=== PATIENT | male | born 1975 | race Caucasian/White ===

== ENCOUNTER 2017-05-27 07:52 | Day surgery (SDC) | payer BC ==
[2017-05-27 08:23] VITALS: BMI 46.5
[2017-05-27] MEDS ORDERED: PROPOFOL 20 ML ONE ×2 (08:45)
[2017-05-27 11:37] VITALS: BP 129/66; PULSE 63; TEMP 97.8
--- NOTE | 2017-05-28 19:00 | PATH ---
Surgical Pathology Report Patient Name: GIUSEPPE GREGG [facility]. Rec. #: [id number] /Age/Gender: 1975 (Age: 41) / M Account: [id number] Location: U-ENDOSCOPY Taken: 05/27/2017 Received: 05/27/2017 Reported: 05/28/2017 Physicians: Jf Wong M.D. Specimen(s) Received A: RECTAL POLYP B: BX TERMINAL ILEUM C: BX CECUM Clinical History Rectal polyps, hemorrhoids Final Diagnosis A. RECTUM, POLYP, BIOPSY: HYPERPLASTIC POLYP. B. TERMINAL ILEUM, BIOPSY: SMALL BOWEL/ILEAL MUCOSA WITHOUT SIGNIFICANT PATHOLOGIC FINDINGS. C. CECUM, BIOPSY: COLONIC MUCOSA WITH SUPERFICIAL HYPERPLASTIC FEATURES. NO EVIDENCE OF MICROSCOPIC COLITIS. Electronically Signed Lanny Dalton M.D. Gross Description A. Received in formalin, labeled "biopsy rectal polyp" is a weeks, irregular portion of soft tissue measuring 0.4 cm. in greatest dimension. The specimen is submitted in toto in one cassette. B. Received in formalin, labeled "biopsy terminal ileum" are 2 weeks, irregular portions of soft tissue measuring 0.3 and 0.4 cm. in greatest dimension. The specimens are submitted in toto in one cassette. C. Received in formalin, labeled "biopsy cecum" are 2 weeks, irregular portions of soft tissue measuring 0.1 and 0.2 cm. in greatest dimension. The specimens are submitted in toto in one cassette. 05/27/201705/27/2017
== END 2017-05-27 10:40 | disposition home or self-care (01) ==
LOC: JASU-ENDO 07:52
PROVIDERS: ATTEND Internal Medicine Gastroenterology
PROC: 0DBP8ZX Excision of Rectum, Via Natural or Artificial Opening Endoscopic, Diagnostic (ICD-10-PCS; principal; 2017-05-27 09:00)
DX: Z12.11 Encounter for screening for malignant neoplasm of colon (principal); R19.7 Diarrhea, unspecified; Z86.010 Personal history of colon polyps; Z83.71 Family history of colonic polyps; K62.1 Rectal polyp; K64.8 Other hemorrhoids
CPT/HCPCS: 87045; 87046; 87177; 87209; 88305-TC

== ENCOUNTER 2019-01-15 18:51 | Inpatient (IN) | payer BC ==
[2019-01-15 18:58] VITALS: BMI 48.7
--- NOTE | 2019-01-15 19:02 | PDOC ---
Rapid Medical Evaluation Chief Complaint: Difficulty with Vision Time Seen by Provider: 01/15/19 19:01 Medical Evaluation: Allergies Allergy/AdvReac Type Severity Reaction Status Date / Time diazepam [From Valium] AdvReac Verified 01/15/19 18:58 Vital Signs Temp Pulse Resp BP Pulse Ox 98.2 F 67 18 131/69 98 01/15/19 18:55 01/15/19 18:55 01/15/19 18:55 01/15/19 18:55 01/15/19 18:55 01/15/19 19:01 I have performed a brief in-person evaluation of this patient. The patient presents with a chief complaint of: resolved vision loss in left eye left field of vision 1 hour ago Pertinent physical exam findings: PERRLA. EOMI. No focal deficits I have ordered the following: head CT, labs The patient will proceed to the ED for further evaluation. 01/15/19 19:01 Discharge Disposition - Diagnosis Vision loss of left eye - Referrals - Patient Instructions - Post Discharge Activity
--- NOTE | 2019-01-15 20:27 | PDOC ---
History of Present Illness - General Chief Complaint: Difficulty with Vision Stated Complaint: VISION PROBLEM Time Seen by Provider: 01/15/19 19:01 History Source: Patient Exam Limitations: No Limitations - History of Present Illness Initial Comments: 01/15/19 20:22 43 yo M pmh HTN, muscular dystrophy, h/o TIA 2004 p/w acute painless monocular vision loss of the left eye, left field. Sx started 1 hour before presentation over 10 minutes and resolved over 10 minutes. Right eye unaffected. Endorses mild headache after resolution of visual symptoms - has since resolved. Denies trauma, diplopia, changes in hearing, lightheadedness/dizziness, numbness/ tingling/weakness, chest pain / palpitations / sob, n/v. Pt wears glasses, denies eye conditions. Allergy to vallium NIH Stroke Scale - Last Known Well Date/Time & Onset Date Last Known Well: 01/15/19 - Initial Evaluation Level of consciousness: Alert Ask patient the month and their age: Answers both correctly Ask patient to open & close eyes; make fist and let go: Obeys both correctly Best gaze (horizontal eye movement): Normal Visual field testing: No visual field loss Facial paresis (Show teeth/raise eyebrows/close eyes tight): Normal symmetrical movement Motor Function: Left Arm: Normal Motor Function: Right Arm: Normal (extends arm 90 (or 45) degrees for 10 seconds without drift Motor Function: Left Leg: Normal (extends leg 30 degrees for 5 seconds without drift) Motor Function: Right Leg: Normal (extends leg 30 degrees for 5 seconds without drift) Limb Ataxia: No ataxia Sensory(Use pinprick test arms,legs,trunk,face/side to side): Normal Best language (Describe picture, name items, read sentences): No Aphasia Dysarthria (read several words): Normal articulation Extinction and Inattention: No abnormality - Total Score NIH Stroke Scale Score: 0 Past History - Past Medical History Allergies/Adverse Reactions: Allergies Allergy/AdvReac Type Severity Reaction Status Date / Time diazepam [From Valium] AdvReac Verified 01/15/19 18:58 Home Medications: Ambulatory Orders Aspirin [Ecotrin] 81 mg PO DAILY 11/19/11 Enalapril Maleate [Vasotec -] 20 mg PO DAILY 11/19/11 Hydrochlorothiazide 50 mg PO DAILY 11/19/11 Arginine [l-Arginine] 1 tab PO DAILY 05/27/17 Ascorbate Calcium [Vitamin C] 500 mg PO DAILY 05/27/17 Cyanocobalamin (Vitamin B-12) [Vitamin B12] 2,500 mcg PO DAILY 05/27/17 Levocarnitine Tartrate [l-Carnitine] 1 tab PO DAILY 05/27/17 Multivitamin with Minerals [Icaps Plus] 1 each PO DAILY 05/27/17 Ornithine [l-Ornithine HCl] 100 gm MC DAILY 05/27/17 COPD: No GI Disorders: Yes (RECTAL POLYP, HIAQTAL HERNIA,IBS) HTN: Yes - Surgical History Orthopedic Surgery: Yes (B/L ACHILLES TENDON LENGHTENING , MUSCLE TRANSFER AGE 17) - Suicide/Smoking/Psychosocial Hx Smoking Status: No Smoking History: Never smoked Number of Cigarettes Smoked Daily: 0 Information on smoking cessation initiated: No Hx Alcohol Use: No Drug/Substance Use Hx: No Substance Use Type: None Review of Systems - Review of Systems Able to Perform ROS?: Yes Is the patient limited Japanese proficient: No Constitutional: No: Symptoms Reported, See HPI, Chills, Diaphoresis, Fever, Loss of Appetite, Malaise, Night Sweats, Weakness, Weight Stable, Unintentional Wgt. Loss, Unexplained wgt Loss, Other HEENTM: No: Eye Pain, Double Vision, Ear Pain, Hearing Loss Respiratory: No: Shortness of Breath Cardiac (ROS): No: Chest Pain, Lightheadedness, Palpitations, Syncope ABD/GI: No: Nausea, Vomiting Neurological: Yes: Headache. No: Numbness, Tingling, Weakness, Dizziness *Physical Exam - Vital Signs Last Vital Signs Temp Pulse Resp BP Pulse Ox 98.2 F 67 18 131/69 98 01/15/19 18:55 01/15/19 18:55 01/15/19 18:55 01/15/19 18:55 01/15/19 18:55 - Physical Exam Comments: 01/15/19 20:39 GEN: resting comfortably in bed, NAD HEENT: NC/AT, EOMI, PERRLA, CN II-XII INTACT. No facial asymmetry. Visual mayorga intact. No nystagmus. 20/20 visual acute with glasses on. NEURO: NIHSS 0. 5/5 b/l shoulder, bicep, tricep, hand, drug inspector strength. 5/5 b /l LE strength. Sensation intact in face and all extremities. No ataxia. CV: S1/S2, RRR, no m/r/g LUNG: CTAB, no wheezes/rales GI: soft, nt, nd, +BS ED Treatment Course - LABORATORY CBC & Chemistry Diagram: 01/15/19 20:45 01/15/19 20:45 Medical Decision Making - Medical Decision Making 01/15/19 20:37 43 yo M h/o TIA and HTN presented with acute painless monocular vision loss affecting the left field of left eye. Symptoms resolved. ROS negative except mild headache that has resolved. DDx most likely TIA, amaurosis fugax; r/o CVA, carotid dissection, considering/ unlikely temporal arteritis, CRVO/CRAO. Acute left sided vision loss of loss eye - ekg - CT head - CTA head and neck - labs - monitors, IV 01/15/19 23:39 CT Head report - no acute hemorrhage Dispo: admit to telemetry *DC/Admit/Observation/Transfer Diagnosis at time of Disposition: Vision loss of left eye, TIA (transient ischemic attack) - Discharge Dispostion Condition at time of disposition: Stable Decision to Admit order: Yes - Referrals - Patient Instructions - Post Discharge Activity
--- NOTE | 2019-01-15 20:31 | PDOC ---
Documentation entered by Rome Rod SCRIBE, acting as scribe for Kalin Escobar MD. Kalin Escobar MD: This documentation has been prepared by the Marcel hernandez Daniel, SCRIBE, under my direction and personally reviewed by me in its entirety. I confirm that the documentation accurately reflects all work, treatment, procedures, and medical decision making performed by me. Attending Attestation - Resident Resident Name: Bharath Delvalle - ED Attending Attestation I have performed the following: I have examined & evaluated the patient, The case was reviewed & discussed with the resident, I agree w/resident's findings & plan, Exceptions are as noted - HPI HPI: 01/15/19 20:21 The patient is a 43 year old male with a past medical history of TIA, HTN, and muscular dystrophy here today for evaluation of loss vision. The patient reports that he had a sudden onset of painless loss of vision of the left visual field in his left eye. He reports that a similar episode happened in his right eye when he had his TIA. He also notes a slight headache which has since resolved. Patient denies headache, lightheadedness. Denies fever, chills. Denies chest pain, shortness of breath. Denies nausea, vomiting, diarrhea, abdominal pain. Allergies: diazepam - Physicial Exam PE: 01/15/19 20:45 Negative RAPD No detectable visual field defect - Medical Decision Making 01/15/19 20:27 TIA in past a/w visual disturbance and limb paresthesias Here with painless, resolved visual field defect, patient describes a monocular hemianopia of the L eye, denies complete vision loss amaurosis? preamble to CRAO, CRVO, TIA, CVA, less likely mass f/u ct b eval carotids f/u labs including coags
[2019-01-15 21:00] LABS: BASO % 0.5 % (0-2.0); EOS % 2.1 % (0-4.5); HEMATOCRIT 43.1 % (35.4-49); HEMOGLOBIN 14.5 GM/dL (11.7-16.9); LYMPH % 29.9 % (8-40); MCH 30.7 pg (25.7-33.7); MCHC 33.7 g/dl (32.0-35.9); MEAN PLT VOLUME 7.6 fl (7.5-11.1); MONO % 7.6 % (3.8-10.2); NEUT % 59.9 % (42.8-82.8); PLATELET COUNT 245 K/MM3 (134-434); RBC 4.74 M/mm3 (4.00-5.60); WHITE BLOOD COUNT 11.1 K/mm3 (4.0-10.0)
[2019-01-15 21:15] LABS: INR 1.03 (0.83-1.09); PROTHROMBIN TIME (PATIENT) 12.1 SEC (9.7-13.0)
[2019-01-15 21:25] LABS: ALBUMIN 3.7 g/dl (3.4-5.0); BILIRUBIN,TOTAL 0.5 mg/dL (0.2-1); BLOOD UREA NITROGEN 16.8 mg/dL (7-18); CALCIUM 8.8 mg/dL (8.5-10.1); CREATININE 0.7 mg/dL (0.55-1.3); POTASSIUM 3.9 mmol/L (3.5-5.1); TOT PROT 6.8 g/dl (6.4-8.2)
[2019-01-15 21:45] LABS: CHOLESTEROL 172 mg/dL (50-200); HDL CHOLESTEROL 48 mg/dL (40-60); TRIGLYCERIDES 103 mg/dL (0-150)
[2019-01-15 21:54] LABS: PH,URINE 5.5 (5.0-8.0); URINE APPEARANCE CLEAR; URINE BILIRUBIN NEGATIVE (NEGATIVE); URINE COLOR YELLOW; URINE GLUCOSE (UA) NEGATIVE (NEGATIVE); URINE KETONE NEGATIVE (NEGATIVE); URINE LEUK ESTERASE NEGATIVE (NEGATIVE); URINE NITRITE NEGATIVE (NEGATIVE); URINE PROTEIN NEGATIVE (NEGATIVE); URINE UROBILINOGEN 0.2 mg/dL (0.2-1.0)
--- NOTE | 2019-01-16 01:04 | HP ---
<Marielle Ty - Last Filed: 01/16/19 07:18> CHIEF COMPLAINT: Vision Loss PCP: HISTORY OF PRESENT ILLNESS: 43 M PMH of TIA, Muscular dystrophy of his hands and feet, and HTN who presents with painless loss of his left peripheral vision. He was sitting at work earlier today when he noticed that he was not able to see his coffee mug in his left peripheral field of vision. The vision loss lasted for 10 minutes, which was followed by a tension type headache in his forehead that also resolved shortly after. He denies any discomfort with chewing, any new numbness, any photophobia, chest pain, shortness of breath, loss of consciousness, fever, chills, urinary or bowel incontinence. He notes a pre-existing numbness in his right thumb related to disc herniation from C5-C7. Of note in 2004 he had TIA which resulted in right hand numbness and right eye blurry vision, which self-resolved and was seen in [facility]. ER course was notable for: (1)In the ED had an EKG which showed NSR. (2)Head CT did not show any acute pathology, and CTA of the neck and brain did not show any stenosis. (3)He was given 80 mg atorvastatin. Recent Travel: No PAST MEDICAL HISTORY: Muscular dystrophy of the hands and feet. Hyperextended Thumbs. TIA in 2004 resulted in right hand numbness and right eye blurry vision. C5-C7 disc herniation that was treated with physical therapy last year. Rectal polyps and IBS PAST SURGICAL HISTORY: Achilles Tendon lengthening bilaterally @age 16. Social History: Smoking:None Alcohol:Rarely Drugs: None Family History: Father had colon cancer and HTN Allergies diazepam [From Valium] Adverse Reaction (Verified 01/15/19 18:58) HOME MEDICATIONS: Home Medications Medication Instructions Recorded Aspirin [Ecotrin] 81 mg PO DAILY 11/19/11 Enalapril Maleate [Vasotec -] 20 mg PO DAILY 11/19/11 Hydrochlorothiazide 50 mg PO DAILY 11/19/11 Arginine [l-Arginine] 1 tab PO DAILY 05/27/17 Ascorbate Calcium [Vitamin C] 500 mg PO DAILY 05/27/17 Cyanocobalamin (Vitamin B-12) 2,500 mcg PO DAILY 05/27/17 [Vitamin B12] Levocarnitine Tartrate 1 tab PO DAILY 05/27/17 [l-Carnitine] Multivitamin with Minerals [Icaps 1 each PO DAILY 05/27/17 Plus] Ornithine [l-Ornithine HCl] 100 gm MC DAILY 05/27/17 REVIEW OF SYSTEMS As above CONSTITUTIONAL: Absent: fever, chills, diaphoresis, generalized weakness, malaise, loss of appetite, weight change HEENT: visual changes that have resolved Absent: nasal congestion, throat pain, throat swelling, difficulty swallowing, mouth swelling, ear pain, eye pain, CARDIOVASCULAR: Absent: chest pain, syncope, palpitations, RESPIRATORY: Absent: cough, shortness of breath, GASTROINTESTINAL: Absent: abdominal pain, abdominal distension, nausea, vomiting, diarrhea GENITOURINARY: Absent: dysuria, frequency, urgency, hesitancy MUSCULOSKELETAL: Absent: myalgia, arthralgia, joint swelling, back pain, neck pain HEMATOLOGIC/IMMUNOLOGIC: Absent: easy bleeding, easy bruising NEUROLOGIC: Absent: headache, focal weakness or paresthesias, dizziness, unsteady gait, seizure, mental status changes, bladder or bowel incontinence PHYSICAL EXAMINATION Vital Signs - 24 hr 01/15/19 01/15/19 18:55 19:50 Temperature 98.2 F 97.9 F Pulse Rate 67 Pulse Rate [ 70 Right Radial] Respiratory 18 17 Rate Blood Pressure 131/69 Blood Pressure 117/72 [Left Arm] O2 Sat by Pulse 98 98 Oximetry (%) GENERAL: Awake, alert, and fully oriented, in no acute distress. Obese body habitus. HEAD: Normal with no signs of trauma. No scalp tenderness. EYES: Pupils equal, round and reactive to light, extraocular movements intact. NECK: Normal range of motion, supple without lymphadenopathy, JVD, or masses. LUNGS: Breath sounds equal, clear to auscultation bilaterally. No wheezes, and no crackles. HEART: Regular rate and rhythm, normal S1 and S2 without murmur, rub or gallop. ABDOMEN: Soft, nontender, not distended, normoactive bowel sounds. MUSCULOSKELETAL: Normal range of motion at all joints. No bony deformities or tenderness. UPPER EXTREMITIES: 2+ pulses, warm, well-perfused. No cyanosis. No clubbing. No peripheral edema. Muscular dystrophy in both hands, thumbs are hyperextended. LOWER EXTREMITIES: 2+ pulses, warm, well-perfused. No calf tenderness. No peripheral edema. NEUROLOGICAL: Cranial nerves II-XII intact. Normal speech. NIH Score: 0 SKIN: Warm, dry, normal turgor, no rashes or lesions noted, normal capillary refill. Laboratory Results - last 24 hr 01/15/19 01/15/19 01/15/19 20:45 20:45 20:45 WBC 11.1 H RBC 4.74 Hgb 14.5 Hct 43.1 MCV 91.0 MCH 30.7 MCHC 33.7 RDW 14.0 Plt Count 245 MPV 7.6 Absolute Neuts (auto) 6.6 Neutrophils % 59.9 Lymphocytes % 29.9 Monocytes % 7.6 Eosinophils % 2.1 Basophils % 0.5 Nucleated RBC % 0 ESR PT with INR 12.10 INR 1.03 Sodium 139 Potassium 3.9 Chloride 103 Carbon Dioxide 29 Anion Gap 7 L BUN 16.8 Creatinine 0.7 Est GFR (CKD-EPI)AfAm 134.91 Est GFR (CKD-EPI)NonAf 116.40 Random Glucose 86 Calcium 8.8 Total Bilirubin 0.5 AST 32 ALT 43 Alkaline Phosphatase 65 Creatine Kinase Creatine Kinase Index CK-MB (CK-2) Troponin I C-Reactive Protein Total Protein 6.8 Albumin 3.7 Triglycerides Cholesterol Total LDL Cholesterol HDL Cholesterol Urine Color Urine Appearance Urine pH Ur Specific [place] Urine Protein Urine Glucose (UA) Urine Ketones Urine Blood Urine Nitrite Urine Bilirubin Urine Urobilinogen Ur Leukocyte Esterase 01/15/19 01/15/19 01/15/19 20:45 20:45 21:20 WBC RBC Hgb Hct MCV MCH MCHC RDW Plt Count MPV Absolute Neuts (auto) Neutrophils % Lymphocytes % Monocytes % Eosinophils % Basophils % Nucleated RBC % ESR 15 H PT with INR INR Sodium Potassium Chloride Carbon Dioxide Anion Gap BUN Creatinine Est GFR (CKD-EPI)AfAm Est GFR (CKD-EPI)NonAf Random Glucose Calcium Total Bilirubin AST ALT Alkaline Phosphatase Creatine Kinase 344 H Creatine Kinase Index 0.6 CK-MB (CK-2) 2.3 Troponin I < 0.02 C-Reactive Protein 0.8 H Total Protein Albumin Triglycerides 103 Cholesterol 172 Total LDL Cholesterol 115 H HDL Cholesterol 48 Urine Color Yellow Urine Appearance Clear Urine pH 5.5 Ur Specific [place] 1.025 Urine Protein Negative Urine Glucose (UA) Negative Urine Ketones Negative Urine Blood Negative Urine Nitrite Negative Urine Bilirubin Negative Urine Urobilinogen 0.2 Ur Leukocyte Esterase Negative ASSESSMENT/PLAN: 43M with PMH of TIA, HTN, and Muscular Dystrophy of the hands and feet, who presents with temporary vision loss most likely due to TIA with an NIH Stroke Scale Score of 0. 1) TIA Atorvastatin 80 mg PO HS Aspirin 81 mg PO QDaily Enalapril 20 mg PO QDaily Hydrochlorothiazide 50 mg PO Qdaily Brain MRI Echo Neuro Checks Q4h Seizure precaution Lipid profile TSH level HbA1c level Physical Therapy Consult 2) Muscular Dystrophy Physical Therapy Consult 3)Elevated LDL Atorvastatin 80 mg PO HS DVT prophylaxis: Lovenox 40 mg SQ Qdaily F:no fluid E:monitor BMP N:Regular Diet Admitted to Telemetry Problem List - Problem (1) TIA (transient ischemic attack) Code(s): G45.9 - TRANSIENT CEREBRAL ISCHEMIC ATTACK, UNSPECIFIED (2) Vision loss of left eye Code(s): H54.62 - UNQUALIFIED VISUAL LOSS, LEFT EYE, NORMAL VISION RIGHT EYE Visit type - Emergency Visit Emergency Visit: Yes ED Registration Date: 01/16/19 Care time: The patient presented to the Emergency Department on the above date and was hospitalized for further evaluation of their emergent condition. - New Patient This patient is new to me today: Yes Date on this admission: 01/16/19 - Critical Care Critical Care patient: No ATTENDING PHYSICIAN STATEMENT I saw and evaluated the patient. I reviewed the resident's note and discussed the case with the resident. I agree with the resident's findings and plan as documented. SUBJECTIVE: OBJECTIVE: ASSESSMENT AND PLAN: <Ruddy Castanon - Last Filed: 01/16/19 08:11> Please refer to my note for further details; agree with above aside from as supplemented. ATTENDING PHYSICIAN STATEMENT I saw and evaluated the patient. I reviewed the resident's note and discussed the case with the resident. I agree with the resident's findings and plan as documented. SUBJECTIVE: OBJECTIVE: ASSESSMENT AND PLAN:
[2019-01-16] MEDS ORDERED: ATORVASTATIN CA 80 MG TABLET (FP) PO SCH (02:49)
[2019-01-16 07:20] LABS: ALBUMIN 3.6 g/dl (3.4-5.0); ALK PHOS 65 U/L (45-117); ANION GAP 5 MMOL/L (8-16); BILIRUBIN,TOTAL 0.7 mg/dL (0.2-1); BLOOD UREA NITROGEN 16.5 mg/dL (7-18); CALCIUM 8.7 mg/dL (8.5-10.1); CHLORIDE 103 mmol/L (98-107); CHOLESTEROL 184 mg/dL (50-200); CO2 30 mmol/L (21-32); CREATININE 0.8 mg/dL (0.55-1.3); GLUCOSE,RANDOM 92 mg/dL (74-106); HDL CHOLESTEROL 45 mg/dL (40-60); POTASSIUM 3.4 mmol/L (3.5-5.1); SGOT/AST 21 U/L (15-37); SGPT/ALT 41 U/L (13-61); SODIUM 137 mmol/L (136-145); TOT PROT 6.4 g/dl (6.4-8.2); TRIGLYCERIDES 124 mg/dL (0-150)
[2019-01-16] MEDS ORDERED: POTASSIUM CHLORIDE ORAL LIQUID 20 MEQ/15 ML PO ONE (07:27)
--- NOTE | 2019-01-16 08:10 | PN ---
Teaching Attending Note Name of Resident: Marielle Ty ATTENDING PHYSICIAN STATEMENT I saw and evaluated the patient. I reviewed the resident's note and discussed the case with the resident. I agree with the resident's findings and plan as documented. VS, labs, imaging reviewed with resident team and all vital aspects of history confirmed NAD, AAOx3, resting in bed; stereotyped MD changes but appears at baseline with NIHSS 0 CN2-12 wnl, no fnd, moves all 4 extremities with baseline strength; chronic MD changes noted. No speech difficulties. Vision now at baseline. RRR s1/2 no mgr NT ND +BS Normal mood, appropriate behavior Formal visual accuity testing pending CT prelim results without acute infarct; MRI pending Echo pending EKG reviewed; nsr ASSESSMENT AND PLAN: Patient presents with transient loss of unilateral vision which has now resolved ; likely TIA and requires neuro r/o given his prior history of similar sx and will refer to optho # Acute TIA # History of Muscular Dystrophy # Morbid Obesity # HTN Admit to tele. ASA 81mg PO QD, Atorva 80, continue home BP meds. Neuro checks , seizure precautions. Consider other items in ddx and will require optho referral on DC. Check echo, MRI. He requests a new neurologist so will consult Dr. Gilbert. Cleared swallow evaluation. PT referral. Risk factor modification. Followup TSH, A1c, Lipids (appears multiple orders have already been sent and unable to cancel). Consider disease intervention specialist referral on DC. NIHSS 0 in ER and to our assessment. Thank you [facility] for allowing [facility] to take part in the ongoing management of your patients. Full Code
--- NOTE | 2019-01-16 08:23 | PN ---
Teaching Attending Note Name of Resident: Alia Varela ATTENDING PHYSICIAN STATEMENT I saw and evaluated the patient. I reviewed the resident's note and discussed the case with the resident. I agree with the resident's findings and plan as documented. SUBJECTIVE: Mr Osborne is without complaint this morning. Denies cp, sob, n/v. Stated he lost vision for 10 minutes in his L eye's peripheral field. Said it was like an camera flash but has now resolved and he is without complaint. OBJECTIVE: Last Vital Signs Temp Pulse Resp BP Pulse Ox 36.8 C 65 16 125/85 97 01/16/19 07:37 01/16/19 07:37 01/16/19 07:37 01/16/19 07:37 01/16/19 07:37 Gen: nad, morbidly obese Pulm: ctab w/o w/r/r CV: rrr w/o m/r/g Abd: +bs, s/nt/nd Ext: no c/c/e CBC, BMP 01/16/19 06:30 ASSESSMENT AND PLAN: Problem List - Problems (1) Vision loss of left eye Assessment/Plan: -now resolved -possible central mechanism, but must consider retinal involvement as well -MRI ordered but ? if will be over the weight limit -will d/w neurology to see if he needs MRI or repeat CT scan or further work up for TIA -if can discharge today, will attempt to coordinate ophthalmology appt as has trip to [place] on Sat Code(s): H54.62 - UNQUALIFIED VISUAL LOSS, LEFT EYE, NORMAL VISION RIGHT EYE (2) Hypokalemia Assessment/Plan: -replace Code(s): E87.6 - HYPOKALEMIA (3) HTN (hypertension) Assessment/Plan: -controlled -continue current management Code(s): I10 - ESSENTIAL (PRIMARY) HYPERTENSION
[2019-01-16 08:30] LABS: BASO % 0.3 % (0-2.0); EOS % 2.3 % (0-4.5); HEMATOCRIT 43.9 % (35.4-49); HEMOGLOBIN 14.8 GM/dL (11.7-16.9); LYMPH % 29.7 % (8-40); MCHC 33.7 g/dl (32.0-35.9); MEAN PLT VOLUME 7.7 fl (7.5-11.1); MONO % 8.1 % (3.8-10.2); NEUT % 59.6 % (42.8-82.8); PLATELET COUNT 238 K/MM3 (134-434); RBC 4.77 M/mm3 (4.00-5.60); RDW 14.2 % (11.9-15.9); WHITE BLOOD COUNT 8.1 K/mm3 (4.0-10.0)
--- NOTE | 2019-01-16 08:46 | PN ---
Physical Exam: SUBJECTIVE: Patient seen and examined,Pt came in yesterday for transient loss of vision in R eye while sitted at his desk at work. It came on gradually over 10-20 mins and lasted for 10mins then went away completely. Pt was concerned and came in because he had a TIA in the past (manifested as tingling of R arm and R eye in 1999. Pt saw Dr Rudolph then but has since started seeing Dr Triana OBJECTIVE: Vital Signs Period Temp Pulse Resp BP Sys/Ramey Pulse Ox Last 24 Hr 97.9 F-98.2 F 56-70 16-18 117-131/69-89 97-98 GENERAL: The patient is awake, alert, and fully oriented, in no acute distress. HEAD: Normal with no signs of trauma. EYES: PERRL, extraocular movements intact, sclera anicteric, conjunctiva clear. No ptosis. ENT: Ears normal, nares patent, oropharynx clear without exudates, moist mucous membranes. NECK: Trachea midline, full range of motion, supple. LUNGS: Breath sounds equal, clear to auscultation bilaterally, no wheezes, no crackles, no accessory muscle use. HEART: Regular rate and rhythm, S1, S2 without murmur, rub or gallop. ABDOMEN: Soft, nontender, nondistended, normoactive bowel sounds, no guarding, no rebound, no hepatosplenomegaly, no masses. EXTREMITIES: 2+ pulses, warm, well-perfused, no edema. NEUROLOGICAL: Cranial nerves II through XII grossly intact. Normal speech, gait not observed. PSYCH: Normal mood, normal affect. SKIN: Warm, dry, normal turgor, no rashes or lesions noted Laboratory Results - last 24 hr 01/15/19 01/15/19 01/15/19 20:45 20:45 20:45 WBC 11.1 H RBC 4.74 Hgb 14.5 Hct 43.1 MCV 91.0 MCH 30.7 MCHC 33.7 RDW 14.0 Plt Count 245 MPV 7.6 Absolute Neuts (auto) 6.6 Neutrophils % 59.9 Lymphocytes % 29.9 Monocytes % 7.6 Eosinophils % 2.1 Basophils % 0.5 Nucleated RBC % 0 ESR PT with INR 12.10 INR 1.03 Sodium 139 Potassium 3.9 Chloride 103 Carbon Dioxide 29 Anion Gap 7 L BUN 16.8 Creatinine 0.7 Est GFR (CKD-EPI)AfAm 134.91 Est GFR (CKD-EPI)NonAf 116.40 Random Glucose 86 Calcium 8.8 Total Bilirubin 0.5 AST 32 ALT 43 Alkaline Phosphatase 65 Creatine Kinase Creatine Kinase Index CK-MB (CK-2) Troponin I C-Reactive Protein Total Protein 6.8 Albumin 3.7 Triglycerides Cholesterol Total LDL Cholesterol HDL Cholesterol TSH Urine Color Urine Appearance Urine pH Ur Specific [place] Urine Protein Urine Glucose (UA) Urine Ketones Urine Blood Urine Nitrite Urine Bilirubin Urine Urobilinogen Ur Leukocyte Esterase 01/15/19 01/15/19 01/15/19 20:45 20:45 21:20 WBC RBC Hgb Hct MCV MCH MCHC RDW Plt Count MPV Absolute Neuts (auto) Neutrophils % Lymphocytes % Monocytes % Eosinophils % Basophils % Nucleated RBC % ESR 15 H PT with INR INR Sodium Potassium Chloride Carbon Dioxide Anion Gap BUN Creatinine Est GFR (CKD-EPI)AfAm Est GFR (CKD-EPI)NonAf Random Glucose Calcium Total Bilirubin AST ALT Alkaline Phosphatase Creatine Kinase 344 H Creatine Kinase Index 0.6 CK-MB (CK-2) 2.3 Troponin I < 0.02 C-Reactive Protein 0.8 H Total Protein Albumin Triglycerides 103 Cholesterol 172 Total LDL Cholesterol 115 H HDL Cholesterol 48 TSH Urine Color Yellow Urine Appearance Clear Urine pH 5.5 Ur Specific [place] 1.025 Urine Protein Negative Urine Glucose (UA) Negative Urine Ketones Negative Urine Blood Negative Urine Nitrite Negative Urine Bilirubin Negative Urine Urobilinogen 0.2 Ur Leukocyte Esterase Negative 01/16/19 01/16/19 01/16/19 03:13 06:30 06:35 WBC RBC Hgb Hct MCV MCH MCHC RDW Plt Count MPV Absolute Neuts (auto) Neutrophils % Lymphocytes % Monocytes % Eosinophils % Basophils % Nucleated RBC % ESR Cancelled PT with INR INR Sodium 137 Potassium 3.4 L Chloride 103 Carbon Dioxide 30 Anion Gap 5 L BUN 16.5 Creatinine 0.8 Est GFR (CKD-EPI)AfAm 127.70 Est GFR (CKD-EPI)NonAf 110.18 Random Glucose 92 Calcium 8.7 Total Bilirubin 0.7 AST 21 ALT 41 Alkaline Phosphatase 65 Creatine Kinase 255 Creatine Kinase Index 0.7 CK-MB (CK-2) 1.9 Troponin I < 0.02 C-Reactive Protein Total Protein 6.4 Albumin 3.6 Triglycerides 113 124 Cholesterol 169 184 Total LDL Cholesterol 116 H 120 H HDL Cholesterol 44 45 TSH 1.27 Urine Color Urine Appearance Urine pH Ur Specific [place] Urine Protein Urine Glucose (UA) Urine Ketones Urine Blood Urine Nitrite Urine Bilirubin Urine Urobilinogen Ur Leukocyte Esterase Active Medications Generic Name Dose Route Start Last Admin Trade Name Maximilianq PRN Reason Stop Dose Admin Aspirin 81 mg 01/16/19 10:00 Ecotrin - PO DAILY [facility] Atorvastatin Calcium 80 mg 01/16/19 02:49 01/16/19 03:14 Lipitor - PO 80 mg HS JAVID Administration Enalapril Maleate 20 mg 01/16/19 10:00 Vasotec - PO DAILY JAVID Enoxaparin Sodium 40 mg 01/16/19 10:00 Lovenox - SQ DAILY [facility] Hydrochlorothiazide 50 mg 01/16/19 10:00 Hctz - PO DAILY [facility] Non-Formulary Medication 1 tab 01/16/19 10:00 Arginine [L-Arginine] PO DAILY [facility] ASSESSMENT/PLAN: ATTENDING PHYSICIAN STATEMENT I saw and evaluated the patient. I reviewed the resident's note and discussed the case with the resident. I agree with the resident's findings and plan as documented. SUBJECTIVE: OBJECTIVE: ASSESSMENT AND PLAN:
--- NOTE | 2019-01-16 09:57 | CONSULT ---
Consult - text type - Consultation Consultation Note: Neurology CHIEF COMPLAINT: Vision Loss HISTORY OF PRESENT ILLNESS: 43 M PMH of TIA, Muscular dystrophy of his hands and feet, and HTN who presented with painless loss of his left peripheral vision. He was sitting at work earlier on the day of admission when he noticed that he was not able to see his coffee mug in his left peripheral field of vision. The vision loss lasted for 10 minutes, which was reportedly followed by a tension type headache in his forehead that also resolved shortly after. He denied any discomfort with chewing, any new numbness, any photophobia, chest pain, shortness of breath, loss of consciousness, fever, chills, urinary or bowel incontinence. He notes a pre-existing numbness in his right thumb related to disc herniation from C5-C7. Of note reportedly in 2004 he had TIA which resulted in right hand numbness and right eye blurry vision, which self-resolved and was seen in [facility]. CT head was completed and I reviewed the results which showed no acute changes. Based on his size he is not able to tolerate MRI machine that we have, therefore repeat noncontrast head CT was completed and without acute changes. CTA head and neck will completed and did not show any abnormal aneurysms or vascular abnormalities. Case discussed withhospitalist and plan is for ophthalmology evaluation. Recent Travel: No PAST MEDICAL HISTORY: Muscular dystrophy of the hands and feet. Hyperextended Thumbs. TIA in 2004 resulted in right hand numbness and right eye blurry vision. C5-C7 disc herniation that was treated with physical therapy last year. Rectal polyps and IBS PAST SURGICAL HISTORY: Achilles Tendon lengthening bilaterally @age 16. Social History: Smoking:None Alcohol:Rarely Drugs: None Family History: Father had colon cancer and HTN Allergies diazepam [From Valium] Adverse Reaction (Verified 01/15/19 18:58) HOME MEDICATIONS: Home Medications Medication Instructions Recorded Aspirin [Ecotrin] 81 mg PO DAILY 11/19/11 Enalapril Maleate [Vasotec -] 20 mg PO DAILY 11/19/11 Hydrochlorothiazide 50 mg PO DAILY 11/19/11 Arginine [l-Arginine] 1 tab PO DAILY 05/27/17 Ascorbate Calcium [Vitamin C] 500 mg PO DAILY 05/27/17 Cyanocobalamin (Vitamin B-12) 2,500 mcg PO DAILY 05/27/17 [Vitamin B12] Levocarnitine Tartrate 1 tab PO DAILY 05/27/17 [l-Carnitine] Multivitamin with Minerals [Icaps 1 each PO DAILY 05/27/17 Plus] Ornithine [l-Ornithine HCl] 100 gm MC DAILY 05/27/17 REVIEW OF SYSTEMS As above CONSTITUTIONAL: Absent: fever, chills, diaphoresis, generalized weakness, malaise, loss of appetite, weight change HEENT: visual changes that have resolved Absent: nasal congestion, throat pain, throat swelling, difficulty swallowing, mouth swelling, ear pain, eye pain, CARDIOVASCULAR: Absent: chest pain, syncope, palpitations, RESPIRATORY: Absent: cough, shortness of breath, GASTROINTESTINAL: Absent: abdominal pain, abdominal distension, nausea, vomiting, diarrhea GENITOURINARY: Absent: dysuria, frequency, urgency, hesitancy MUSCULOSKELETAL: Absent: myalgia, arthralgia, joint swelling, back pain, neck pain HEMATOLOGIC/IMMUNOLOGIC: Absent: easy bleeding, easy bruising NEUROLOGIC: Absent: headache, focal weakness or paresthesias, dizziness, unsteady gait, seizure, mental status changes, bladder or bowel incontinence PHYSICAL EXAMINATION Vital Signs Period Temp Pulse Resp BP Sys/Ramey Pulse Ox Last 24 Hr 97.9 F-98.2 F 56-70 16-18 117-131/69-89 97-98 GENERAL: Awake, alert, and fully oriented, in no acute distress. Obese body habitus. HEAD: Normal with no signs of trauma. No scalp tenderness. EYES: Pupils equal, round and reactive to light, extraocular movements intact. NECK: Normal range of motion, supple without lymphadenopathy, JVD, or masses. LUNGS: Breath sounds equal, clear to auscultation bilaterally. No wheezes, and no crackles. HEART: Regular rate and rhythm, normal S1 and S2 without murmur, rub or gallop. ABDOMEN: Soft, nontender, not distended, normoactive bowel sounds. MUSCULOSKELETAL: Normal range of motion at all joints. No bony deformities or tenderness. UPPER EXTREMITIES: 2+ pulses, warm, well-perfused. No cyanosis. No clubbing. No peripheral edema. Muscular dystrophy in both hands, thumbs are hyperextended. LOWER EXTREMITIES: 2+ pulses, warm, well-perfused. No calf tenderness. No peripheral edema. NEUROLOGICAL: Cranial nerves II-XII intact. Normal speech. Strength equal and symmetric bilaterally, bilateral atrophy of thenar eminence, sensory intact, finger to nose normal SKIN: Warm, dry, normal turgor, no rashes or lesions noted, normal capillary refill. Laboratory Results - last 24 hr 01/15/19 01/15/19 01/15/19 20:45 20:45 20:45 WBC 11.1 H RBC 4.74 Hgb 14.5 Hct 43.1 MCV 91.0 MCH 30.7 MCHC 33.7 RDW 14.0 Plt Count 245 MPV 7.6 Absolute Neuts (auto) 6.6 Neutrophils % 59.9 Lymphocytes % 29.9 Monocytes % 7.6 Eosinophils % 2.1 Basophils % 0.5 Nucleated RBC % 0 ESR PT with INR 12.10 INR 1.03 Sodium 139 Potassium 3.9 Chloride 103 Carbon Dioxide 29 Anion Gap 7 L BUN 16.8 Creatinine 0.7 Est GFR (CKD-EPI)AfAm 134.91 Est GFR (CKD-EPI)NonAf 116.40 Random Glucose 86 Calcium 8.8 Total Bilirubin 0.5 AST 32 ALT 43 Alkaline Phosphatase 65 Creatine Kinase Creatine Kinase Index CK-MB (CK-2) Troponin I C-Reactive Protein Total Protein 6.8 Albumin 3.7 Triglycerides Cholesterol Total LDL Cholesterol HDL Cholesterol Urine Color Urine Appearance Urine pH Ur Specific [place] Urine Protein Urine Glucose (UA) Urine Ketones Urine Blood Urine Nitrite Urine Bilirubin Urine Urobilinogen Ur Leukocyte Esterase 01/15/19 01/15/19 01/15/19 20:45 20:45 21:20 WBC RBC Hgb Hct MCV MCH MCHC RDW Plt Count MPV Absolute Neuts (auto) Neutrophils % Lymphocytes % Monocytes % Eosinophils % Basophils % Nucleated RBC % ESR 15 H PT with INR INR Sodium Potassium Chloride Carbon Dioxide Anion Gap BUN Creatinine Est GFR (CKD-EPI)AfAm Est GFR (CKD-EPI)NonAf Random Glucose Calcium Total Bilirubin AST ALT Alkaline Phosphatase Creatine Kinase 344 H Creatine Kinase Index 0.6 CK-MB (CK-2) 2.3 Troponin I < 0.02 C-Reactive Protein 0.8 H Total Protein Albumin Triglycerides 103 Cholesterol 172 Total LDL Cholesterol 115 H HDL Cholesterol 48 Urine Color Yellow Urine Appearance Clear Urine pH 5.5 Ur Specific [place] 1.025 Urine Protein Negative Urine Glucose (UA) Negative Urine Ketones Negative Urine Blood Negative Urine Nitrite Negative Urine Bilirubin Negative Urine Urobilinogen 0.2 Ur Leukocyte Esterase Negative ASSESSMENT/PLAN: 43 M PMH of TIA, Muscular dystrophy of his hands and feet, and HTN who presented with painless loss of his left peripheral vision. He was sitting at work earlier on the day of admission when he noticed that he was not able to see his coffee mug in his left peripheral field of vision. The vision loss lasted for 10 minutes, which was reportedly followed by a tension type headache in his forehead that also resolved shortly after. He denied any discomfort with chewing, any new numbness, any photophobia, chest pain, shortness of breath, loss of consciousness, fever, chills, urinary or bowel incontinence. He notes a pre-existing numbness in his right thumb related to disc herniation from C5-C7. Of note reportedly in 2004 he had TIA which resulted in right hand numbness and right eye blurry vision, which self-resolved and was seen in [facility]. CT head was completed and I reviewed the results which showed no acute changes. Based on his size he is not able to tolerate MRI machine that we have, therefore repeat noncontrast head CT was completed and without acute changes. CTA head and neck will completed and did not show any abnormal aneurysms or vascular abnormalities. Case discussed withhospitalist and plan is for ophthalmology evaluation. no evidence of stroke on repeat imaging no evidence of vascular malformations or aneurysms. Monitor blood pressure, maintain normotensive range , weight loss may be of benefit as well. LDL 115, can likely reduce statin to 40 instead of 80.
[2019-01-16] MEDS ORDERED: ASPIRIN 325 MG ENTERIC COATED TABLET (FP) PO SCH (10:00)
[2019-01-16] MEDS ORDERED: HYDROCHLOROTHIAZIDE 50 MG TABLET PO SCH (10:00)
[2019-01-16] MEDS ORDERED: ENOXAPARIN NA (PORCINE) 40 MG/0.4 ML DISP.SYRIN SQ SCH (10:00)
[2019-01-16] MEDS ORDERED: ARGININE PO SCH (10:00)
[2019-01-16] MEDS ORDERED: ENALAPRIL MALEATE 10 MG TABLET (FP) PO SCH (10:00)
--- NOTE | 2019-01-16 10:29 | DS ---
Physical Exam: SUBJECTIVE: Patient seen and examined,Pt came in yesterday for transient loss of vision in R eye while sitted at his desk at work. It came on gradually over 10-20 mins and lasted for 10mins then went away completely. Pt was concerned and came in because he had a TIA in the past (manifested as tingling of R arm and R eye in 1999. Pt saw Dr Rudolph then but has since started seeing Dr Triana OBJECTIVE: Vital Signs Period Temp Pulse Resp BP Sys/Ramey Pulse Ox Last 24 Hr 97.9 F-98.2 F 56-70 16-18 117-131/69-89 97-98 PHYSICAL EXAM GENERAL: Morbidly obese patient, awake, alert, and fully oriented, in no acute distress. HEAD: Normal with no signs of trauma. EYES: PERRL, extraocular movements intact, sclera anicteric, conjunctiva clear. No nystagmus LUNGS: Breath sounds equal, clear to auscultation bilaterally, no wheezes, no crackles HEART: Regular rate and rhythm, S1, S2 ABDOMEN: Soft, nontender, obese, normoactive bowel sounds EXTREMITIES: Atrophic intrinsic muscles b/l hands with hyperextended thumbs. LE with interweb wetness suggestive of tinea pedis. No atrophy of muscles of lower extremities.2+ pulses, warm, well-perfused, no edema. NEUROLOGICAL: Cranial nerves II through XII grossly intact. No facial drop. No tingling, no tremors, Muscle strength 5/5 globally. Plantar flexion downgoing. Normal speech, gait not observed. LABS Laboratory Results - last 24 hr 01/15/19 01/15/19 01/15/19 20:45 20:45 20:45 WBC 11.1 H RBC 4.74 Hgb 14.5 Hct 43.1 MCV 91.0 MCH 30.7 MCHC 33.7 RDW 14.0 Plt Count 245 MPV 7.6 Absolute Neuts (auto) 6.6 Neutrophils % 59.9 Lymphocytes % 29.9 Monocytes % 7.6 Eosinophils % 2.1 Basophils % 0.5 Nucleated RBC % 0 ESR PT with INR 12.10 INR 1.03 Sodium 139 Potassium 3.9 Chloride 103 Carbon Dioxide 29 Anion Gap 7 L BUN 16.8 Creatinine 0.7 Est GFR (CKD-EPI)AfAm 134.91 Est GFR (CKD-EPI)NonAf 116.40 Random Glucose 86 Hemoglobin A1c % Calcium 8.8 Total Bilirubin 0.5 AST 32 ALT 43 Alkaline Phosphatase 65 Creatine Kinase Creatine Kinase Index CK-MB (CK-2) Troponin I C-Reactive Protein Total Protein 6.8 Albumin 3.7 Triglycerides Cholesterol Total LDL Cholesterol HDL Cholesterol TSH Urine Color Urine Appearance Urine pH Ur Specific [place] Urine Protein Urine Glucose (UA) Urine Ketones Urine Blood Urine Nitrite Urine Bilirubin Urine Urobilinogen Ur Leukocyte Esterase 01/15/19 01/15/19 01/15/19 20:45 20:45 21:20 WBC RBC Hgb Hct MCV MCH MCHC RDW Plt Count MPV Absolute Neuts (auto) Neutrophils % Lymphocytes % Monocytes % Eosinophils % Basophils % Nucleated RBC % ESR 15 H PT with INR INR Sodium Potassium Chloride Carbon Dioxide Anion Gap BUN Creatinine Est GFR (CKD-EPI)AfAm Est GFR (CKD-EPI)NonAf Random Glucose Hemoglobin A1c % Calcium Total Bilirubin AST ALT Alkaline Phosphatase Creatine Kinase 344 H Creatine Kinase Index 0.6 CK-MB (CK-2) 2.3 Troponin I < 0.02 C-Reactive Protein 0.8 H Total Protein Albumin Triglycerides 103 Cholesterol 172 Total LDL Cholesterol 115 H HDL Cholesterol 48 TSH Urine Color Yellow Urine Appearance Clear Urine pH 5.5 Ur Specific [place] 1.025 Urine Protein Negative Urine Glucose (UA) Negative Urine Ketones Negative Urine Blood Negative Urine Nitrite Negative Urine Bilirubin Negative Urine Urobilinogen 0.2 Ur Leukocyte Esterase Negative 01/16/19 01/16/19 01/16/19 03:13 06:22 06:30 WBC RBC Hgb Hct MCV MCH MCHC RDW Plt Count MPV Absolute Neuts (auto) Neutrophils % Lymphocytes % Monocytes % Eosinophils % Basophils % Nucleated RBC % ESR PT with INR INR Sodium 137 Potassium 3.4 L Chloride 103 Carbon Dioxide 30 Anion Gap 5 L BUN 16.5 Creatinine 0.8 Est GFR (CKD-EPI)AfAm 127.70 Est GFR (CKD-EPI)NonAf 110.18 Random Glucose 92 Hemoglobin A1c % 5.8 Calcium 8.7 Total Bilirubin 0.7 AST 21 ALT 41 Alkaline Phosphatase 65 Creatine Kinase 255 Creatine Kinase Index 0.7 CK-MB (CK-2) 1.9 Troponin I < 0.02 C-Reactive Protein Total Protein 6.4 Albumin 3.6 Triglycerides 113 124 Cholesterol 169 184 Total LDL Cholesterol 116 H 120 H HDL Cholesterol 44 45 TSH 1.27 Urine Color Urine Appearance Urine pH Ur Specific [place] Urine Protein Urine Glucose (UA) Urine Ketones Urine Blood Urine Nitrite Urine Bilirubin Urine Urobilinogen Ur Leukocyte Esterase 01/16/19 06:35 WBC 8.1 RBC 4.77 Hgb 14.8 Hct 43.9 MCV 92.0 MCH 31.0 MCHC 33.7 RDW 14.2 Plt Count 238 MPV 7.7 Absolute Neuts (auto) 4.8 Neutrophils % 59.6 Lymphocytes % 29.7 Monocytes % 8.1 Eosinophils % 2.3 Basophils % 0.3 Nucleated RBC % 0 ESR Cancelled PT with INR INR Sodium Potassium Chloride Carbon Dioxide Anion Gap BUN Creatinine Est GFR (CKD-EPI)AfAm Est GFR (CKD-EPI)NonAf Random Glucose Hemoglobin A1c % Calcium Total Bilirubin AST ALT Alkaline Phosphatase Creatine Kinase Creatine Kinase Index CK-MB (CK-2) Troponin I C-Reactive Protein Total Protein Albumin Triglycerides Cholesterol Total LDL Cholesterol HDL Cholesterol TSH Urine Color Urine Appearance Urine pH Ur Specific [place] Urine Protein Urine Glucose (UA) Urine Ketones Urine Blood Urine Nitrite Urine Bilirubin Urine Urobilinogen Ur Leukocyte Esterase Ambulatory Orders Aspirin [Ecotrin] 81 mg PO DAILY 11/19/11 Enalapril Maleate [Vasotec -] 20 mg PO DAILY 11/19/11 Hydrochlorothiazide 50 mg PO DAILY 11/19/11 Arginine [l-Arginine] 1 tab PO DAILY 05/27/17 Ascorbate Calcium [Vitamin C] 500 mg PO DAILY 05/27/17 Cyanocobalamin (Vitamin B-12) [Vitamin B12] 2,500 mcg PO DAILY 05/27/17 Levocarnitine Tartrate [l-Carnitine] 1 tab PO DAILY 05/27/17 Multivitamin with Minerals [Icaps Plus] 1 each PO DAILY 05/27/17 Ornithine [l-Ornithine HCl] 100 gm MC DAILY 05/27/17 Atorvastatin Ca [Lipitor] 80 mg PO HS #30 tablet 01/16/19 HOSPITAL COURSE: Date of Admission:01/16/19 Date of Discharge: 01/16/19 43 M PMH of TIA, Muscular dystrophy of his hands and feet, and HTN who presents with painless loss of his left peripheral vision. He was sitting at work earlier today when he noticed that he was not able to see his coffee mug in his left peripheral field of vision. The vision loss lasted for 10 minutes, which was followed by a tension type headache in his forehead that also resolved shortly after. He denies any discomfort with chewing, any new numbness, any photophobia, chest pain, shortness of breath, loss of consciousness, fever, chills, urinary or bowel incontinence. He notes a pre-existing numbness in his right thumb related to disc herniation from C5-C7. Of note in 2004 he had TIA which resulted in right hand numbness and right eye blurry vision, which self-resolved and was seen in [facility]. He was worked up to R/ O a TIA with CT head x2 (MRI not possible due to weight greater than 350). Pt was seen by neurology, resumed on ASA, started on lipitor high dose. There was a concern however for retinal detachment and unsuccessful attempts were made to get in touch with the office of Dr Neto Buchanan (vertical punch operator). Patient was advised to be seen immediately by an vertical punch operator and he was discharged home. Minutes to complete discharge: 40 Discharge Summary Reason For Visit: TRANSIENT ISCHEMIC ATTACK Current Active Problems HTN (hypertension) (Acute) Hypokalemia (Acute) TIA (transient ischemic attack) (Acute) Vision loss of left eye (Acute) Condition: Stable - Instructions Diet, Activity, Other Instructions: You came in with a hx of transient blindness in your L eye that has resolved. Your were evaluated to make sure you did not have a stroke. Your head CT was negative twice and CTA of your head and neck was also negative We have started you on statins- Lipitor 80mg at night We encourage weight loss We are concerned that your eye symptoms could have been symptoms of retinal detachment Retinal detachment is an eye emergency- We are referring you to an vertical punch operator- Dr Neto Buchanan to have your eyes evaluated immediately If you notice worsening of your symptoms like persistent blurring or complete blindness of any eye, worsening headaches not relieved with medication, weakness of any part of your body with inability to move, chest pain or shortness of breath, please go to the nearest emergency room. Disposition: HOME - Home Medications Comprehensive Discharge Medication List: Ambulatory Orders Aspirin [Ecotrin] 81 mg PO DAILY 11/19/11 Enalapril Maleate [Vasotec -] 20 mg PO DAILY 11/19/11 Hydrochlorothiazide 50 mg PO DAILY 11/19/11 Arginine [l-Arginine] 1 tab PO DAILY 05/27/17 Ascorbate Calcium [Vitamin C] 500 mg PO DAILY 05/27/17 Cyanocobalamin (Vitamin B-12) [Vitamin B12] 2,500 mcg PO DAILY 05/27/17 Levocarnitine Tartrate [l-Carnitine] 1 tab PO DAILY 05/27/17 Multivitamin with Minerals [Icaps Plus] 1 each PO DAILY 05/27/17 Ornithine [l-Ornithine HCl] 100 gm MC DAILY 05/27/17 Atorvastatin Ca [Lipitor] 80 mg PO HS #30 tablet 01/16/19 This patient is new to me today: Yes Date on this admission: 01/16/19 Emergency Visit: Yes ED Registration Date: 01/16/19 Care time: The patient presented to the Emergency Department on the above date and was hospitalized for further evaluation of their emergent condition. Critical Care patient: No - Discharge Referral Referred to [facility] Med [facility] No ATTENDING PHYSICIAN STATEMENT I saw and evaluated the patient. I reviewed the resident's note and discussed the case with the resident. I agree with the resident's findings and plan as documented. SUBJECTIVE: OBJECTIVE: ASSESSMENT AND PLAN:
[2019-01-16 11:06] VITALS: BP 113/64; PULSE 64; TEMP 97.8
--- NOTE | 2019-01-16 13:33 | EKG ---
Test Reason : Blood Pressure : / mmHG Vent. Rate : 067 BPM Atrial Rate : 067 BPM P-R Int : 170 ms QRS Dur : 088 ms QT Int : 416 ms P-R-T Axes : 024 044 029 degrees QTc Int : 439 ms NORMAL SINUS RHYTHM NORMAL ECG WHEN COMPARED WITH ECG OF 25-JAN-2010 13:02, NO SIGNIFICANT CHANGE WAS FOUND Confirmed by AISSATOU JACK MD ([id number]) on 01/16/2019 1:32:51 PM Referred By: Confirmed By:AISSATOU JACK MD
== END 2019-01-16 11:29 | disposition home or self-care (01) | DRG 69 ==
LOC: JER 18:51 → JERBED 01-16 00:17
PROVIDERS: ADMIT Internal Medicine; ATTEND Internal Medicine
DX: G45.8 Other transient cerebral ischemic attacks and related syndromes (principal); Z68.42 Body mass index [BMI] 45.0-49.9, adult; I10 Essential (primary) hypertension; G71.00 Muscular dystrophy, unspecified; R29.700 NIHSS score 0; H54.62 Unqualified visual loss, left eye, normal vision right eye; K58.8 Other irritable bowel syndrome; M50.222 Other cervical disc displacement at C5-C6 level; E66.01 Morbid (severe) obesity due to excess calories; E87.6 Hypokalemia; R51 Headache
CPT/HCPCS: 36415; 70450-TC; 70496-TC; 70498-TC; 80053; 80061; 81003; 82465; 82550; 82553; 83036; 83718; 83721; 84443; 84478; 84484; 85025; 85610; 85651; 86140; 93005; 93010; 99285-25

== ENCOUNTER 2023-02-13 09:25 | Emergency (ER) | payer BC ==
[2023-02-13 09:32] VITALS: BMI 44.9
[2023-02-13 12:11] VITALS: BP 103/67; PULSE 72; RESP 16; TEMP 97.7
== END 2023-02-13 12:52 | disposition home or self-care (01) ==
LOC: JER 09:25
DX: R60.9 Edema, unspecified (principal); L03.115 Cellulitis of right lower limb
CPT/HCPCS: 93971-TC; 99284-25